=== PATIENT | female | born 1985 | race Two or more races ===

== ENCOUNTER → 2018-02-17 | Outpatient (CLI) | payer OTHER ==
[~2018-02-17] MED LIST: ACYC400 PO; ALPR1 PO; ALUMAGSIMA PO; IBUP800 PO; NAPR500 PO; Omeprazole20 M1 PO; PANT20 PO; PENVK500 PO; Prilosec20 MG PO; VIT B PO; Verotin-Gr Cap1 EACH PO
[2018-02-17 11:40] LABS: BASOPHILS ABSOLUTE AUTO 0.05 K/mm3 (0.00-0.23); BASOPHILS PERCENT AUTO 1 % (0-2); EOSINOPHILS ABSOLUTE AUTO 0.16 K/mm3 (0.00-0.68); EOSINOPHILS PERCENT AUTO 2 % (0-6); Hematocrit 46.1 % (33.0-51.0); Hemoglobin 15.5 g/dL (11.5-16.0); IMMATURE GRAN ABSOLUTE AUTO 0.03 K/mm3 (0.00-0.10); IMMATURE GRAN PERCENT AUTO 0 % (0-1); LYMPHOCYTES ABSOLUTE AUTO 2.31 K/mm3 (0.84-5.20); LYMPHOCYTES PERCENT AUTO 24 % (21-46); MONOCYTES ABSOLUTE AUTO 0.59 K/mm3 (0.16-1.47); MONOCYTES PERCENT AUTO 6 % (4-13); Mean Corpuscular HGB 30.6 pg (26.0-34.0); Mean Corpuscular HGB Conc 33.6 g/dL (31.5-36.5); Mean Corpuscular Volume 91 fL (80-100); NEUTROPHILS ABSOLUTE AUTO 6.42 K/mm3 (1.96-9.15); NEUTROPHILS PERCENT AUTO 67 % (41-73); Platelet Count 203 K/mm3 (150-400); RDW Coefficient Variation 12.6 % (11.7-14.2); RDW Standard Deviation 41.4 fL (35.1-46.3); Red Blood Cell Count 5.07 M/mm3 (3.80-5.20); White Blood Cell Count 9.56 K/mm3 (4.00-11.30)
[2018-02-17 11:45] LABS: Mean Platelet Volume 13.1 fL (9.1-12.4)
[2018-02-17 11:57] LABS: Alanine Aminotransfer (ALT/SGP 29 U/L (12-78); Albumin, Blood 3.6 g/dL (3.4-5.0); Albumin/Globulin Ratio 0.9 (0.8-1.8); Alk Phos 101 U/L (50-136); Anion Gap 6 mmol/L (6-16); Aspartate Aminotrans (AST/SGOT 10 U/L (12-37); Bilirubin, Total 0.4 mg/dL (0.1-1.0); Blood Urea Nitrogen 10 mg/dL (8-24); Bun/Creatinine Ratio 14.5 (12.0-20.0); CO2, Blood 28 mmol/L (21-32); Calcium, Blood 8.9 mg/dL (8.5-10.1); Chloride, Blood 104 mmol/L (98-108); Cholesterol 186 mg/dL (50-200); Creatinine, Blood 0.69 mg/dL (0.40-1.00); Globulin, Blood 4.1 g/dL (2.2-4.0); Glomerular Filtration Rate >60 (60-); Glucose, Blood 117 mg/dL (70-99); HDL Cholesterol 46 mg/dL (>39); LDL/HDL RATIO 2.5; Low Density Lipoprotein Chol 113 mg/dL (0-110); Potassium, Blood 3.9 mmol/L (3.5-5.5); Sodium, Blood 138 mmol/L (136-145); Total Protein, Blood 7.7 g/dL (6.4-8.2); Triglycerides 134 mg/dL (30-140); Very Low Density Lipoprot Chol 26 mg/dL (6-28)
== END | disposition home or self-care (01) ==
LOC: LAB SHORT 11:27 → LAB 11:27
PROVIDERS: Physician Assistant
DX: F32.9 Major depressive disorder, single episode, unspecified (principal); R53.83 Other fatigue; E66.9 Obesity, unspecified
CPT/HCPCS: 80053; 80061; 82306; 83036; 84443; 85025

== ENCOUNTER 2019-05-23 18:12 | Emergency (ER) | payer OTHER ==
[~2019-05-23] VITALS: Ht 177.8 cm; Wt 136.1 kg
[~2019-05-23 18:12] MED LIST changes: -IBU800 M1 PO; -LORTAB 10 MG-3473 ML PO; -Tamiflu75 MG PO
[2019-05-23 19:07] LABS: BASOPHILS ABSOLUTE AUTO 0.02 K/mm3 (0.00-0.23); BASOPHILS PERCENT AUTO 0 % (0-2); EOSINOPHILS ABSOLUTE AUTO 0.02 K/mm3 (0.00-0.68); EOSINOPHILS PERCENT AUTO 0 % (0-6); Hematocrit 47.7 % (33.0-51.0); Hemoglobin 15.9 g/dL (11.5-16.0); IMMATURE GRAN ABSOLUTE AUTO 0.02 K/mm3 (0.00-0.10); IMMATURE GRAN PERCENT AUTO 0 % (0-1); LYMPHOCYTES ABSOLUTE AUTO 1.12 K/mm3 (0.84-5.20); LYMPHOCYTES PERCENT AUTO 19 % (21-46); MONOCYTES ABSOLUTE AUTO 0.49 K/mm3 (0.16-1.47); MONOCYTES PERCENT AUTO 8 % (4-13); Mean Corpuscular HGB 30.1 pg (26.0-34.0); Mean Corpuscular HGB Conc 33.3 g/dL (31.5-36.5); Mean Corpuscular Volume 90 fL (80-100); Mean Platelet Volume 12.7 fL (9.1-12.4); NEUTROPHILS ABSOLUTE AUTO 4.23 K/mm3 (1.96-9.15); NEUTROPHILS PERCENT AUTO 72 % (41-73); Platelet Count 137 K/mm3 (150-400); RDW Standard Deviation 43.2 fL (35.1-46.3); Red Blood Cell Count 5.29 M/mm3 (3.80-5.20)
[2019-05-23 19:26] LABS: Alanine Aminotransfer (ALT/SGP 26 U/L (12-78); Albumin, Blood 3.6 g/dL (3.4-5.0); Albumin/Globulin Ratio 0.9 (0.8-1.8); Alk Phos 85 U/L (50-136); Anion Gap 7 mmol/L (6-16); Aspartate Aminotrans (AST/SGOT 20 U/L (12-37); Bilirubin, Total 0.2 mg/dL (0.1-1.0); Blood Urea Nitrogen 8 mg/dL (8-24); Bun/Creatinine Ratio 11.9 (12.0-20.0); CO2, Blood 21 mmol/L (21-32); Chloride, Blood 106 mmol/L (98-108); Creatinine, Blood 0.67 mg/dL (0.40-1.00); Globulin, Blood 3.8 g/dL (2.2-4.0); Glomerular Filtration Rate >60 (60-); Glucose, Blood 107 mg/dL (70-99); Sodium, Blood 134 mmol/L (136-145); Total Protein, Blood 7.4 g/dL (6.4-8.2)
[2019-05-23 19:29] LABS: Source, Urine Clean Catch
[2019-05-23 19:32] LABS: Bilirubin, Urine Neg (Neg); Blood, Urine 3+ (Neg); Glucose Qualitative, Urine Neg (Neg); Ketones, Urine Neg (Neg); Leukocyte Esterase, Urine 1+ (Neg); Nitrite, Urine Neg (Neg); Protein, Urine Neg (Neg); Urobilinogen, Urine NORM (Normal)
[2019-05-23 19:34] LABS: Appearance, Urine Hazy (Clear); Color, Urine Yellow (P-Yellow)
[2019-05-23 19:39] LABS: Bacteria Many /hpf; Red Blood Cells, Urine 0-2 /hpf (0-2); Squamous Epithelial Cells Mod /hpf (Few)
[2019-05-23] MEDS ORDERED: LORTAB 10 MG-3473 ML PO (20:24)
[2019-05-23] MEDS ORDERED: IBU800 M1 PO (20:24)
[2019-05-23] MEDS ORDERED: Tamiflu75 MG PO (20:24)
== END 2019-05-23 21:01 | disposition home or self-care (01) ==
LOC: ER 18:12
PROVIDERS: Physician Assistant
DX: J10.1 Influenza due to other identified influenza virus with other respiratory manifestations (principal); Z88.5 Allergy status to narcotic agent
CPT/HCPCS: 36415; 80053; 81001; 81025; 83690; 85025; 87086; 96361; 96374; 96375; 99283-25; J1100; J1885; J2405; J7030

== ENCOUNTER → 2019-05-23 | Outpatient (CLI) | payer OTHER ==
[~2019-05-23] MED LIST changes: +IBU800 M1 PO; +LORTAB 10 MG-3473 ML PO; +Tamiflu75 MG PO
== END ==
LOC: LAB EV 10:22 → LAB SHORT 10:22
DX: R50.9 Fever, unspecified (principal)
CPT/HCPCS: 87081

== ENCOUNTER 2021-07-27 07:29 | Day surgery (SDC) | payer OTHER ==
[~2021-07-27] VITALS: Ht 175.3 cm; Wt 157.4 kg
[~2021-07-27 07:29] MED LIST changes: +IBU800 M1 PO; +LORTAB 10 MG-3473 ML PO; +Tamiflu75 MG PO
== END 2021-07-27 10:42 | disposition home or self-care (01) ==
LOC: ORSCSDS 07:29
PROVIDERS: Obstetrics & Gynecology
PROC: 0U5B8ZZ Destruction of Endometrium, Via Natural or Artificial Opening Endoscopic (ICD-10-PCS; principal; 2021-07-27 08:45)
PROC: 0UDB8ZX Extraction of Endometrium, Via Natural or Artificial Opening Endoscopic, Diagnostic (ICD-10-PCS; principal; 2021-07-27 08:45)
DX: N92.0 Excessive and frequent menstruation with regular cycle (principal); N94.6 Dysmenorrhea, unspecified; E66.01 Morbid (severe) obesity due to excess calories; Z68.43 Body mass index [BMI] 50.0-59.9, adult
CPT/HCPCS: 88305; J0690; J1100; J2250; J2405; J2704; J2765; J3010; J7120

== ENCOUNTER 2023-05-28 12:48 | Emergency (ER) | payer OTHER ==
[~2023-05-28] VITALS: Ht 172.7 cm; Wt 124.7 kg
[2023-05-28 12:53] VITALS: BP 165/112
[2023-05-28] MEDS ORDERED: Robaxin750 MG PO (14:51)
[2023-05-28] MEDS ORDERED: IBUP800 PO (14:51)
== END 2023-05-28 15:51 | disposition home or self-care (01) ==
LOC: ER 12:48
DX: M25.531 Pain in right wrist (principal); M79.652 Pain in left thigh; M54.50 Low back pain, unspecified; V49.50XA Passenger injured in collision with unspecified motor vehicles in traffic accident, initial encounter; Z88.5 Allergy status to narcotic agent; Z88.8 Allergy status to other drugs, medicaments and biological substances; Z91.09 Other allergy status, other than to drugs and biological substances; Z87.891 Personal history of nicotine dependence
CPT/HCPCS: 72100; 73110; 99284-25; A9270

== ENCOUNTER 2024-01-17 11:51 | Day surgery (SDC) | payer OTHER ==
[2024-01-17] VITALS (19 sets, daily range): BP systolic 138–184; BP diastolic 79–104
[~2024-01-17] VITALS: Ht 175.3 cm; Wt 150.4 kg
[~2024-01-17 11:51] MED LIST changes: +CeFAZolin Sodium 2,000 MG in NS 100 ML IV SCH; +Lactated Ringer's 1,000 ML IV SCH; +Robaxin750 MG PO
[2024-01-17] MEDS ORDERED: Bupivacaine 0.5% HCl 5 MG/ML 30MLVIAL ONE (12:28)
[2024-01-17] MEDS ORDERED: CeFAZolin Sodium 3,000 MG in NS 100 ML IV SCH ×2 (12:50→20:00)
--- NOTE | 2024-01-17 12:58 | NUR ---
History, Chart, Medications and Allergies reviewed before start of procedure. Pre-Op teaching done. Pt verbalizes understanding. Ambulatory in Day Surgery WITH STEADY GAIT. PT LEFT EARRING IN R EAR AND 2 HOOPS IN NOSE. REFUSAL CONSENT FOR JEWELRY SIGNED. PT BELONGINGS GIVEN TO AT BEDSIDE.
[2024-01-17] MEDS ORDERED: propofoL 20 ML IV ONE (13:07)
[2024-01-17] MEDS ORDERED: FentaNYL Citrate 50 MCG/ML 2 ML Injection ONE ×3 (13:07→16:28)
[2024-01-17] MEDS ORDERED: Rocuronium Bromide 10 MG/ML 5ML Injection IV ONE ×3 (13:08→14:48)
[2024-01-17] MEDS ORDERED: Dexamethasone Sod Phos 10 MG/ML 1ML VIAL ONE (13:33)
[2024-01-17] MEDS ORDERED: HYDROmorphone HCl/Pf 1MG SYR ONE ×2 (14:29→17:03)
[2024-01-17] MEDS ORDERED: Glycopyrrolate 0.2 MG/ML 5ML VIAL ONE (14:30)
[2024-01-17] MEDS ORDERED: ePHEDrine Sulfate 50 MG/ML 1ML Injection ONE (14:32)
[2024-01-17] MEDS ORDERED: Sugammadex Sodium 200 MG/2ML SDV (100 MG/ML) ONE ×2 (15:31)
[2024-01-17] MEDS ORDERED: Naloxone HCl 0.4MG / ML 1ML Vial IV PRN (16:45)
[2024-01-17] MEDS ORDERED: Promethazine HCl 12.5 MG Supp PR PRN (16:45)
[2024-01-17] MEDS ORDERED: Ondansetron 4 MG TAB PO PRN (16:45)
[2024-01-17] MEDS ORDERED: Promethazine HCl 25 MG Tab PO PRN (16:45)
[2024-01-17] MEDS ORDERED: OxyCODONE 5 mg/Acetamin 325 mg TABLET PO PRN (16:45)
[2024-01-17] MEDS ORDERED: Simethicone 80 MG Chew PO PRN (16:50)
[2024-01-17] MEDS ORDERED: Ondansetron HCl 2 MG / ML 2ML Vial IV PRN (16:50)
[2024-01-17] MEDS ORDERED: Lactated Ringer's 1,000 ML IV SCH (16:50)
[2024-01-17] MEDS ORDERED: Metoclopramide HCl 5MG / ML 2ML Vial ONE (16:58)
[2024-01-17] MEDS ORDERED: HYDROmorphone HCl/Pf 1MG SYR IV PRN (17:00)
[2024-01-17] MEDS ORDERED: Ketorolac Tromethamine 30mg Vial IV PRN (17:00)
[2024-01-17] MEDS ORDERED: Ketorolac Tromethamine 30mg Vial ONE (17:15)
[2024-01-18 03:49] VITALS: BP 151/79
[2024-01-18 03:56] LABS: BASOPHILS ABSOLUTE AUTO 0.01 K/mm3 (0.00-0.23); BASOPHILS PERCENT AUTO 0 % (0-2); EOSINOPHILS PERCENT AUTO 0 % (0-6); Hematocrit 38.4 % (33.0-51.0); Hemoglobin 13.1 g/dL (11.5-16.0); IMMATURE GRAN ABSOLUTE AUTO 0.05 K/mm3 (0.00-0.10); IMMATURE GRAN PERCENT AUTO 0 % (0-1); LYMPHOCYTES ABSOLUTE AUTO 1.65 K/mm3 (0.84-5.20); LYMPHOCYTES PERCENT AUTO 13 % (21-46); MONOCYTES ABSOLUTE AUTO 0.59 K/mm3 (0.16-1.47); MONOCYTES PERCENT AUTO 5 % (4-13); Mean Corpuscular HGB 29.6 pg (26.0-34.0); Mean Corpuscular HGB Conc 34.1 g/dL (31.5-36.5); Mean Corpuscular Volume 87 fL (80-100); Mean Platelet Volume 12.7 fL (9.1-12.4); NEUTROPHILS ABSOLUTE AUTO 10.73 K/mm3 (1.96-9.15); NEUTROPHILS PERCENT AUTO 82 % (41-73); Platelet Count 267 K/mm3 (150-400); RDW Coefficient Variation 13.3 % (11.7-14.2); RDW Standard Deviation 43.1 fL (35.1-46.3); Red Blood Cell Count 4.42 M/mm3 (3.80-5.20); White Blood Cell Count 13.03 K/mm3 (4.00-11.30)
--- NOTE | 2024-01-18 04:26 | NUR ---
SHIFT SUMMARY POD1 KENNY LAP HYSTER. LAP SITES ARE C/D/I. MIN/MOD VAGINAL BLEEDING NOTED. PT REQUIRED TWO PAD CHANGES T/O THE ENTIRE NIGHT. NOTED THAT THE BLOODY DRAINAGE HAS GOTTEN DARKER T/O THE NIGHT AND IS NOW A DARK RED COLOR. VSS. PT SLEPT ON AND OFF T/O THE NIGHT. LAKE REMOVED AT THE BEGINNING OF SHIFT AND PT HAS BEEN VOIDING SINCE THEN. A BLADDER SCAN WAS PERFORMED AROUND MIDNIGHT DUE TO LOW VOLUME VOIDS AND THE BLADDER SCAN CORRELATED WITH THE VOIDED AMOUNTS. EACH VOID IS ABOUT 100 MLS AND PT REPORTS MORE AND MORE RELIEF WITH EACH VOID. PT WAS ABLE TO TAKE A SMALL WALK IN THE HALLWAY DURING THE NIGHT AND IS TOLLERATING PO INTAKE. MEDICATED FOR INTERMITENT NAUSEA AND PAIN WITH GOOD RESULTS NOTED. OVERALL, NO ACUTE EVENTS NOTED. PLAN FOR D/C TODAY.
--- NOTE | 2024-01-18 05:30 | NUR ---
PHARMACY COMMUNICATION THIS RN AND THE LABOR ECONOMICS TEACHER HAS REQUESTED THE PATIENTS 0400 ANCEF TWICE. ONCE BY SCANNING A REQUEST AND ONCE BY SPEAKING TO THE PHARMACIST DIRECTLY. THE LABOR ECONOMICS TEACHER WAS INFORMED WE ARE WAITING ON THE INSIDE SALES ADVERTISING EXECUTIVE TO MAKE THE MEDICATION.
[2024-01-18 08:16] VITALS: BP 131/79
[2024-01-18] MEDS ORDERED: Percocet 5-3251 EACH PO (09:18)
[2024-01-18] MEDS ORDERED: PROM25 PO (09:19)
[2024-01-18] MEDS ORDERED: SIME80CH PO (09:20)
--- NOTE | 2024-01-18 10:28 | NUR ---
discharge pod 1 lap hysterectomy pt having minimal bleeding. pain well controlled per emar. passing gas, voiding well. ambulating well to restroom. spouse picked up prescriptions prior to discharge. all instructions gone over with patient. taken out to vehicle with wheelchair.
== END 2024-01-18 10:38 | disposition home or self-care (01) ==
LOC: ORSCMMR 11:51 → ORD 13:15 → SURS 17:43 → ORSCMMR 01-18 10:38
PROVIDERS: Obstetrics & Gynecology
PROC: 0UT94ZZ Resection of Uterus, Percutaneous Endoscopic Approach (ICD-10-PCS; principal; 2024-01-17 13:15)
PROC: 0UB74ZZ Excision of Bilateral Fallopian Tubes, Percutaneous Endoscopic Approach (ICD-10-PCS; principal; 2024-01-17 13:15)
DX: D25.2 Subserosal leiomyoma of uterus (principal); N92.1 Excessive and frequent menstruation with irregular cycle; N80.329 Endometriosis of the posterior cul-de-sac, unspecified depth; F32.A Depression, unspecified; E66.01 Morbid (severe) obesity due to excess calories; Z68.42 Body mass index [BMI] 45.0-49.9, adult; Z87.891 Personal history of nicotine dependence
CPT/HCPCS: 36415; 85025; 86850; 86900; 86901; 88307; 94762; A9270; J0690; J1100; J1170; J1885; J2405; J2704; J2765; J3010; J7120